=== PATIENT | female | born 1985 | race Caucasian/White ===

== ENCOUNTER 2017-08-18 10:27 | Emergency (ER) | payer MEDICAID ==
[~2017-08-18] VITALS: Ht 154.9 cm; Wt 68.0 kg
[2017-08-18 10:33] VITALS: BP 134/91
--- NOTE | 2017-08-18 10:42 | NUR ---
Patient to be 14 at this time.
--- NOTE | 2017-08-18 10:43 | NUR ---
31/F BIB SELF C/O MECHANICAL FALL LAST NIGHT; LEFT ANKLE PAIN , & SWELLING RADIATES TO LLL.AAOX4 WITH EVEN AND UNSTEADY GAIT, AMB WITH CRUTCHES; LUNGS CLEAR BL; HR EVEN AND REGULAR; PATIENT STATES PAIN OF 8/10 AT THIS TIME; PATIENT POSITIONED FOR COMFORT; HOB ELEVATED; BEDRAILS UP X2; BED DOWN. ER MD MADE AWARE OF PT STATUS.
--- NOTE | 2017-08-18 11:16 | NUR ---
Patient being evaluated by DR MENDENHALL at bedside.
[2017-08-18] MEDS ORDERED: KETOROLAC 60 MG/2 ML VIAL IM ONE (11:20)
[2017-08-18 11:49] VITALS: BP 118/81
--- NOTE | 2017-08-18 11:50 | NUR ---
Patient discharged with v/s stable. Written and verbal after care instructions given and explained. Patient alert, oriented and verbalized understanding of instructions. Ambulatory with WITH CRUTCHES. All questions addressed prior to discharge. ID band removed. Patient advised to follow up with PMD. Rx of IBUPROFEN given. Patient educated on indication of medication including possible reaction and side effects. Opportunity to ask questions provided and answered.
== END 2017-08-18 11:50 | disposition home or self-care (01) ==
LOC: MED 10:27
DX: S93.402A Sprain of unspecified ligament of left ankle, initial encounter (principal); R03.0 Elevated blood-pressure reading, without diagnosis of hypertension; Z90.49 Acquired absence of other specified parts of digestive tract; W10.9XXA Fall (on) (from) unspecified stairs and steps, initial encounter; Y93.01 Activity, walking, marching and hiking; Y92.89 Other specified places as the place of occurrence of the external cause; Y99.8 Other external cause status
CPT/HCPCS: 73610; 96372; 99284; J1885

== ENCOUNTER 2021-07-28 11:19 | Emergency (ER) | payer MEDICAID ==
[~2021-07-28] VITALS: Ht 154.9 cm; Wt 89.4 kg
[2021-07-28 11:26] VITALS: BP 133/94
--- NOTE | 2021-07-28 11:30 | NUR ---
PT TO LOBBY.
--- NOTE | 2021-07-28 11:35 | NUR ---
35 Y/O FEMALE C/O BACK PAIN 06/06 DESCRIBES ACHING WORST WITH DEEP BREATHING RADIATES TO MID RIGHT SIDE OF BACK X6DAYS. PT STATES SHE TOOK IBUPROFEN PRIOR TO ARRIVAL WITH NO RELIEF. DENIES TRAUMA/INJURY. DENIES N/V, DENIES FEVER/CHILLS. DENIES PMH NKA
--- NOTE | 2021-07-28 12:07 | NUR ---
PT TAKEN TO JANE Lorenzo
[2021-07-28] MEDS ORDERED: KETOROLAC 30 MG/ML VIAL IM ONE (12:20)
--- NOTE | 2021-07-28 12:36 | NUR ---
pt refused any injection medications at this time.
--- NOTE | 2021-07-28 12:42 | NUR ---
PT TAKEN TO XR VIA W/C.
--- NOTE | 2021-07-28 13:07 | NUR ---
PT TAKEN TO C VIA W/C.
[2021-07-28] MEDS ORDERED: NAPR-54 PO (13:38)
[2021-07-28] MEDS ORDERED: METH-1681 PO (13:38)
[2021-07-28] MEDS ORDERED: LIDO1ADH47 TP (13:38)
[2021-07-28 13:51] VITALS: BP 126/88
--- NOTE | 2021-07-28 13:52 | NUR ---
Patient discharged with v/s stable. Written and verbal after care instructions given and explained. Patient alert, oriented and verbalized understanding of instructions. Ambulatory with steady gait. All questions addressed prior to discharge. ID band removed. Patient advised to follow up with PMD. Rx of LIDOCAINE PATCH, AND NAPROXEN given. Patient educated on indication of medication including possible reaction and side effects. Opportunity to ask questions provided and answered.
== END 2021-07-28 13:52 | disposition home or self-care (01) ==
LOC: MED 11:19
DX: S39.012A Strain of muscle, fascia and tendon of lower back, initial encounter (principal); X58.XXXA Exposure to other specified factors, initial encounter; Y93.89 Activity, other specified; Y92.89 Other specified places as the place of occurrence of the external cause; Y99.8 Other external cause status
CPT/HCPCS: 72072; 81002; 81025; 99283; J1885

== ENCOUNTER 2022-06-16 02:13 | Emergency (ER) | payer MEDICAID, OTHER ==
[~2022-06-16] VITALS: Ht 154.9 cm; Wt 77.1 kg
[~2022-06-16 02:13] MED LIST: LIDO1ADH47 TP; METH-1681 PO; NAPR-54 PO
[2022-06-16 02:40] VITALS: BP 138/89
--- NOTE | 2022-06-16 02:43 | NUR ---
TO LOBBY A/W BED AMBULATORY
--- NOTE | 2022-06-16 03:06 | NUR ---
PT TO BED NO 4
[2022-06-16] MEDS ORDERED: KETOROLAC 30 MG/ML VIAL IM ONE (03:35)
--- NOTE | 2022-06-16 03:53 | NUR ---
Patient declined IM toradol, requesting PO pain medication. ER physician verbally informed. ER pysician verbalized understanding. Medication returned to [facility].
[2022-06-16] MEDS ORDERED: IBUPROFEN 600 MG TAB PO ONE (04:00)
[2022-06-16] MEDS ORDERED: NAPR-54 PO (05:50)
[2022-06-16] MEDS ORDERED: CYCL-711 PO (05:50)
[2022-06-16 06:40] VITALS: BP 119/68
== END 2022-06-16 06:40 | disposition home or self-care (01) ==
LOC: MED 02:13
DX: M54.10 Radiculopathy, site unspecified (principal); Z79.899 Other long term (current) drug therapy; Z90.49 Acquired absence of other specified parts of digestive tract
CPT/HCPCS: 71045; 93005; 99283; Q0092; J1885